=== PATIENT | male | born 1980 | race Caucasian/White ===

== ENCOUNTER 2016-08-02 22:15 | Emergency (ER) | payer MEDICAID ==
[2016-05-16 05:57] VITALS: BMI 27.2
[~2016-08-02 22:15] MED LIST: HYDROCODON-ACE1 EAC7 PO; PERCOCET 10/3251 TA1 PO
== END 2016-08-02 23:50 | disposition home or self-care (01) ==
LOC: D.ER 22:15
DX: K08.89 Other specified disorders of teeth and supporting structures (principal); M54.5 Low back pain; M06.9 Rheumatoid arthritis, unspecified

== ENCOUNTER 2016-09-28 21:59 | Emergency (ER) | payer MEDICAID ==
[2016-05-16 05:57] VITALS: BMI 27.2
== END 2016-09-29 00:55 | disposition home or self-care (01) ==
LOC: D.ER 21:59
DX: S86.911A Strain of unspecified muscle(s) and tendon(s) at lower leg level, right leg, initial encounter (principal); X58.XXXA Exposure to other specified factors, initial encounter; Y93.89 Activity, other specified; Y92.89 Other specified places as the place of occurrence of the external cause

== ENCOUNTER 2016-10-02 21:02 | Emergency (ER) | payer MEDICAID ==
[2016-05-16 05:57] VITALS: BMI 27.2
== END 2016-10-02 22:45 | disposition home or self-care (01) ==
LOC: D.ER 21:02
DX: S02.5XXA Fracture of tooth (traumatic), initial encounter for closed fracture (principal); X58.XXXA Exposure to other specified factors, initial encounter; Y93.89 Activity, other specified; Y92.89 Other specified places as the place of occurrence of the external cause; M06.9 Rheumatoid arthritis, unspecified

== ENCOUNTER 2016-10-25 22:21 | Emergency (ER) | payer MEDICAID ==
[2016-05-16 05:57] VITALS: BMI 27.2
== END 2016-10-25 23:30 | disposition home or self-care (01) ==
LOC: D.ER 22:21
DX: K08.89 Other specified disorders of teeth and supporting structures (principal); K05.10 Chronic gingivitis, plaque induced; K02.9 Dental caries, unspecified; M06.9 Rheumatoid arthritis, unspecified

== ENCOUNTER 2016-11-17 22:26 | Emergency (ER) | payer MEDICAID ==
[2016-05-16 05:57] VITALS: BMI 27.2
== END 2016-11-18 01:25 | disposition home or self-care (01) ==
LOC: D.ER 22:26
DX: J06.9 Acute upper respiratory infection, unspecified (principal)

== ENCOUNTER → 2017-03-04 09:43 | Outpatient (CLI) | payer MEDICAID ==
[2016-05-16 05:57] VITALS: BMI 27.2
== END | disposition home or self-care (01) ==
LOC: D.MRI 09:43
DX: M25.561 Pain in right knee (principal)

== ENCOUNTER 2017-03-15 20:58 | Emergency (ER) | payer MEDICAID ==
[2016-05-16 05:57] VITALS: BMI 27.2
== END 2017-03-15 22:48 | disposition home or self-care (01) ==
LOC: D.ER 20:58
DX: L02.414 Cutaneous abscess of left upper limb (principal)

== ENCOUNTER 2017-03-17 21:45 | Emergency (ER) | payer MEDICAID ==
[2016-05-16 05:57] VITALS: BMI 27.2
== END 2017-03-17 23:10 | disposition home or self-care (01) ==
LOC: D.ER 21:45
DX: L02.414 Cutaneous abscess of left upper limb (principal)

== ENCOUNTER 2017-07-30 21:41 | Emergency (ER) | payer MEDICAID ==
[2016-05-16 05:57] VITALS: BMI 27.2
== END 2017-07-31 00:14 | disposition home or self-care (01) ==
LOC: D.ER 21:41
DX: S83.91XA Sprain of unspecified site of right knee, initial encounter (principal); W19.XXXA Unspecified fall, initial encounter; Y93.89 Activity, other specified; Y92.019 Unspecified place in single-family (private) house as the place of occurrence of the external cause; M25.561 Pain in right knee

== ENCOUNTER 2017-08-05 20:48 | Emergency (ER) | payer MEDICAID ==
[2016-05-16 05:57] VITALS: BMI 27.2
== END 2017-08-05 22:42 | disposition home or self-care (01) ==
LOC: D.ER 20:48
DX: S89.91XA Unspecified injury of right lower leg, initial encounter (principal); W19.XXXA Unspecified fall, initial encounter; Y93.89 Activity, other specified; Y92.89 Other specified places as the place of occurrence of the external cause

== ENCOUNTER 2018-05-23 17:21 | Emergency (ER) | payer MEDICAID ==
[~2018-05-23] VITALS: Ht 180.3 cm; Wt 84.1 kg
[2018-05-23 17:23] VITALS: Ht 180.3 cm; Wt 84.1 kg
[2018-05-23] MEDS ORDERED: VOLTAREN75 MG PO (17:58)
[2018-05-23] MEDS ORDERED: ROBAXIN500 MG PO (17:58)
[2018-05-23 18:07] VITALS: BP 129/86
== END 2018-05-23 18:08 | disposition home or self-care (01) ==
LOC: D.ER 17:21
DX: M54.6 Pain in thoracic spine (principal); M25.512 Pain in left shoulder

== ENCOUNTER → 2018-06-04 14:36 | Outpatient (CLI) | payer MEDICAID ==
[2018-05-23 17:23] VITALS: BMI 25.8
[~2018-06-04 14:36] MED LIST changes: +ROBAXIN500 MG PO; +VOLTAREN75 MG PO
== END | disposition home or self-care (01) ==
LOC: D.RAD 14:36
DX: M54.6 Pain in thoracic spine (principal); M54.2 Cervicalgia

== ENCOUNTER → 2018-07-20 15:46 | Outpatient (CLI) | payer MEDICAID ==
[2018-05-23 17:23] VITALS: BMI 25.8
== END | disposition home or self-care (01) ==
LOC: D.MRI 07-14 10:00
DX: M50.10 Cervical disc disorder with radiculopathy, unspecified cervical region (principal)

== ENCOUNTER → 2019-12-06 19:00 | Outpatient (CLI) | payer MEDICAID ==
[2018-05-23 17:23] VITALS: BMI 25.8
[2019-12-06 20:02] LABS: HEMATOCRIT 41.2 % (42.0-54.0); HEMOGLOBIN 13.5 g/dL (13.5-17.5); MCHC 32.8 g/dL (31.0-37.0); MCV 91.6 fL (80.0-100.0); MEAN PLATELET VOLUME 8.5 fL (7.4-10.4); PLATELET COUNT 350 10x3/uL (130-400); RDW 13.2 % (11.5-14.5); WBC 5.7 10x3/uL (4.8-10.8)
[2019-12-06 21:15] LABS: EOSINOPHILS 4 % (0-7); LYMPHOCYTES 20 % (15-50); MONOCYTES 1 % (2-11); NEUTROPHILS 75 % (40-80); PLATELET ESTIMATE NORMAL
== END | disposition home or self-care (01) ==
LOC: D.LABREF 19:00
PROVIDERS: ATTEND Legal Medicine
DX: I10 Essential (primary) hypertension (principal)